=== PATIENT | female | born 1985 | race Caucasian/White ===

== ENCOUNTER 2022-08-30 04:57 | Inpatient (IN) ==
[2022-08-30] MEDS ORDERED: Famotidine 20 MG/2 ML VIAL IVP ONE (05:21)
[2022-08-30] MEDS ORDERED: OXYTOCIN/RINGERS LACTATE 10 UNIT/166.6 ML BAG IVC ONE (05:21)
[2022-08-30] MEDS ORDERED: Metoclopramide 10 MG/2 ML VIAL IVP ONE (05:21)
[2022-08-30] MEDS ORDERED: CeFAZolin Syr 3,000MG/30 ML 3,000 MG/30 ML SYRINGE IVPB ONE (05:21)
[2022-08-30] MEDS ORDERED: Ringers Solution, Lactated 1,000 ML IVC ONE (05:21)
[2022-08-30] MEDS ORDERED: Oxytocin 30 UNIT/503 ML BAG IVC SCH ×2 (05:30→11:08)
[2022-08-30] MEDS ORDERED: *HR* Labetalol 20 MG/4 ML SYRINGE IVP PRN (06:54)
[2022-08-30] MEDS ORDERED: Promethazine 6.25 MG in Water for inj. (sterile) 20 ML IVPB PRN ×2 (06:54→16:10)
[2022-08-30] MEDS ORDERED: Acetaminophen IV 1,000 MG/100 ML BAG IVPB PRN (06:54)
[2022-08-30] MEDS ORDERED: *HR* Meperidine 25 MG/ML SYRINGE IVP PRN (06:54)
[2022-08-30] MEDS ORDERED: *HR* HYDROmorphone PF 0.5 MG/0.5 ML SYRINGE IVP PRN (06:54)
[2022-08-30] MEDS ORDERED: *HR* Morphine Sulfate/PF 10 MG/10 ML AMPUL ONE (06:56)
[2022-08-30] MEDS ORDERED: *HR* Midazolam HCl 2 MG/2 ML VIAL ONE (06:56)
[2022-08-30] MEDS ORDERED: EPHEDrine sulfate 50 MG/10 ML VIAL IVP ONE (06:57)
[2022-08-30] MEDS ORDERED: *HR* FentaNYL (PF) 100 MCG/2 ML VIAL ONE (06:57)
[2022-08-30] MEDS ORDERED: Ketorolac 30 MG/ML VIAL ONE (06:58)
[2022-08-30] MEDS ORDERED: Acetaminophen IV 1,000 MG/100 ML BAG IVPB ONE (06:58)
[2022-08-30] MEDS ORDERED: Ringers Solution, Lactated 1,000 ML ONE ×2 (06:58→07:18)
[2022-08-30] MEDS ORDERED: Ondansetron 4 MG/2 ML VIAL ONE ×2 (06:58→07:46)
[2022-08-30 07:13] LABS: Basophils % 0.4 %; Eosinophils # 0.1 K/mcL (0.0-0.6); Eosinophils % 0.8 %; Hematocrit 37.2 % (35.3-44.9); Hemoglobin 12.2 g/dL (11.5-15.4); Immature Granulocytes % 1.5 % (0-4); Lymphocytes # 1.7 K/mcL (0.6-4.6); Lymphocytes % 15.1 %; Mean Corpuscular HGB Conc 32.8 g/dL (31.6-35.5); Mean Corpuscular Hemoglobin 28.9 pg (28.0-33.3); Mean Corpuscular Volume 88.2 fL (83.0-100.0); Mean Platelet Volume 9.2 fL (9.4-12.4); Monocytes # 0.8 K/mcL (0.0-1.3); Monocytes % 7.4 %; Neutrophils # 8.3 K/mcL (1.6-8.9); Platelet Count 222 K/mcL (140-400); Red Blood Count 4.22 M/mcL (3.82-4.97); Red Cell Distribution Width 15.8 % (11.5-14.5); Segmented Neutrophils % 74.8 %
[2022-08-30] MEDS ORDERED: Ondansetron 4 MG/2 ML VIAL IVP PRN (11:08)
[2022-08-30] MEDS ORDERED: Ringers Solution, Lactated 1,000 ML IVC SCH (11:08)
[2022-08-30] MEDS ORDERED: Metoclopramide 10 MG/2 ML VIAL IVP PRN (11:08)
[2022-08-30] MEDS ORDERED: Measles/Mumps/Rubella Vacc 0.5 ML VIAL SQ ONE (11:08)
[2022-08-30] MEDS ORDERED: Simethicone 80 MG TAB.CHEW PO PRN (11:08)
[2022-08-30] MEDS ORDERED: *HR* OxyCODONE Immed Rel 5 MG TABLET PO PRN (11:08)
[2022-08-30] MEDS: Ibuprofen 600 MG TABLET PO SCH ×2 (11:49→21:02)
[2022-08-30] MEDS ORDERED: *HR* Promethazine 25 MG/ML VIAL ONE (16:47)
[2022-08-30] MEDS ORDERED: *HR* Promethazine 25 MG/ML VIAL IM PRN (16:55)
[2022-08-30] MEDS: Acetaminophen 325 MG TABLET PO SCH (17:03)
[2022-08-30] MEDS: *HR* Enoxaparin 60 MG/0.6 ML SYRINGE SQ SCH (21:03)
[2022-08-31] MEDS: Acetaminophen 325 MG TABLET PO SCH ×2 (01:30→20:59)
[2022-08-31] MEDS: Ibuprofen 600 MG TABLET PO SCH ×4 (01:30→20:59)
[2022-08-31 05:23] VITALS: O2SAT 97
[2022-08-31 05:25] LABS: Basophils % 0.2 %; Eosinophils # 0.1 K/mcL (0.0-0.6); Eosinophils % 0.4 %; Hematocrit 28.4 % (35.3-44.9); Immature Granulocytes % 0.9 % (0-4); Lymphocytes # 1.8 K/mcL (0.6-4.6); Lymphocytes % 14.8 %; Mean Corpuscular HGB Conc 32.7 g/dL (31.6-35.5); Mean Corpuscular Hemoglobin 28.9 pg (28.0-33.3); Mean Corpuscular Volume 88.2 fL (83.0-100.0); Mean Platelet Volume 9.3 fL (9.4-12.4); Neutrophils # 9.1 K/mcL (1.6-8.9); Platelet Count 167 K/mcL (140-400); Red Blood Count 3.22 M/mcL (3.82-4.97); Red Cell Distribution Width 15.7 % (11.5-14.5); Segmented Neutrophils % 75.7 %; White Blood Count 12.1 K/mcL (4.3-11.1)
[2022-08-31 05:35] LABS: Hemoglobin 9.3 g/dL (11.5-15.4)
[2022-08-31] MEDS: *HR* Enoxaparin 60 MG/0.6 ML SYRINGE SQ SCH ×2 (08:05→20:58)
[2022-08-31] MEDS ORDERED: Prenatal Vit/FA 1 EACH TABLET PO SCH (09:00)
[2022-08-31] MEDS ORDERED: polyethylene glycoL 3350 17 GM POWD.PACK PO PRN (12:17)
[2022-08-31 20:07] VITALS: BP 124/77; PULSE 97; TEMP 98.1
[2022-08-31] MEDS ORDERED: Lanolin 7 G OINT...G. TP PRN (21:03)
[2022-09-01] MEDS ORDERED: Sennosides 8.6 MG TABLET PO SCH (09:00)
== END 2022-09-01 03:20 | disposition home or self-care (01) | DRG 540 ==
LOC: 1NENULAB 04:57 → 1NENUOBS 12:01
PROVIDERS: ADMIT Obstetrics & Gynecology; ATTEND Obstetrics & Gynecology